=== PATIENT | male | born 1990 | race Caucasian/White ===

== ENCOUNTER 2018-09-23 04:17 | Emergency (ER) | payer BC ==
--- NOTE | 2018-09-23 04:19 | ER Report ---
History and Physical Time Seen By MD: 04:19 HPI/ROS CHIEF COMPLAINT: Gen. malaise, chills, cough HISTORY OF PRESENT ILLNESS: Patient is a 28-year-old male here with complaints of general malaise which started yesterday afternoon gradually worsening with associated cough, aches, chills, weakness. Patient reports that over the course of the night his symptoms precipitously worsened prompting evaluation. Patient has been tolerating oral intake with liquids. Denies obtaining influenza vaccination this year. REVIEW OF SYSTEMS: Constitutional: + fever, + chills. Eyes: No discharge. ENT: No sore throat. Cardiovascular: No chest pain, no palpitations. Respiratory: + cough, no shortness of breath. Gastrointestinal: No abdominal pain, no vomiting, + nausea Genitourinary: No hematuria. Musculoskeletal: No back pain.+ aches Skin: No rashes. Neurological: No headache. Allergies: Coded Allergies: No Known Drug Allergies (Unverified , 09/23/18) Home Meds Active Scripts Ondansetron 4 Mg Odt (ONDANSETRON 4 MG ODT) 4 Mg Tab.rapdis, 4 MG PO ONCE, #30 TAB Prov:MARIBEL MENDOSA DO 09/23/18 Oseltamivir Phosphate (TAMIFLU) 75 Mg Cap, 75 MG PO BID for 5 Days, #10 CAP 0 Refills Prov:MARIBEL MENDOSA DO 09/23/18 Reported Medications Fluticasone/Vilanterol 100/25 Mcg/Inh (BREO ELLIPTA 100/25 MCG) 1 Each Aer.pow.ba, 1 INH INH QDAY, INH 09/23/18 Fexofenadine Hcl (ABY ALLERGY) 180 Mg Tablet, 180 MG PO QDAY 09/23/18 Constitutional Vital Sign - Last 24 Hours 09/23/18 09/23/18 09/23/18 09/23/18 04:22 04:22 04:47 04:48 Temp 100.4 Pulse 122 114 Resp 18 B/P (MAP) 130/77 (94) 130/77 124/74 (91) Pulse Ox 88 90 O2 Delivery Room Air 09/23/18 09/23/18 09/23/18 09/23/18 04:53 05:06 05:08 05:23 Pulse 112 113 115 B/P (MAP) 131/41 (71) Pulse Ox 92 86 90 09/23/18 09/23/18 05:34 05:38 Pulse 115 B/P (MAP) 126/72 (90) Pulse Ox 87 Intake and Output 09/22/18 09/22/18 09/23/18 15:00 23:00 07:00 Intake Total 1000 ml Balance 1000 ml Physical Exam General Appearance: The patient is alert, has no immediate need for airway protection and no signs of toxicity. + Moderate distress Eyes: Pupils equal and round no pallor or injection. ENT, Mouth: Mucous membranes are moist. Respiratory: There are no retractions, lungs are clear to auscultation. Cardiovascular: + Sinus tachycardia Gastrointestinal: Abdomen is soft and non tender, no masses, bowel sounds normal. Neurological: No focal neurological deficits Skin: Warm and dry, no rashes. Musculoskeletal: Neck is supple non tender. Extremities are nontender, nonswollen and have full range of motion. DIFFERENTIAL DIAGNOSIS: After history and physical exam differential diagnosis was considered for adult fever including but not limited to viral syndromes including influenza, urinary tract infection, pneumonia and sepsis. Medical Decision Making Data Points Laboratory Hematology Test 09/23/18 00:00 Influenza Virus Type A (PCR) Positive (NEGATIVE) Influenza Virus Type B (PCR) Negative (NEGATIVE) Chemistry Test 09/23/18 00:00 Influenza Virus Type A (PCR) Positive (NEGATIVE) Influenza Virus Type B (PCR) Negative (NEGATIVE) EKG/Imaging Imaging Location: [facility] - [place] Patient: Bentley Goncalves : 1990 Visit/Account:[id number] [facility] CHEST: Indication: Cough and fever. Technique: Frontal and lateral views were obtained. Comparison: None. Skeletal and soft tissue structures: Intact and unremarkable. Heart and mediastinum: Within normal limits. Lung estrada: Well-expanded and clear. No focal opacities. Pleural spaces: Unremarkable. Impression: No acute process. ED Course/Re-evaluation ED Course Patient is a 28-year-old male here with progressive onset of general malaise, fever, fatigue, chills, weakness starting yesterday afternoon. Patient has been tolerating oral intake however was notably tachycardic at time of evaluation. Chest x-ray showed no acute consolidations. Patient was given IV fluid bolus, Zofran. Flu screening was positive for influenza A. Patient was given prescription for Tamiflu, Zofran and advised to take Tylenol, ibuprofen as needed for fever control. Return precautions provided, PCP follow-up recommended. Decision to Disposition Date: Sep 23, 2018 Decision to Disposition Time: 05:52 Depart Departure Latest Vital Signs Vital Signs Date Time Temp Pulse Resp B/P (MAP) Pulse Ox O2 Delivery O2 Flow Rate FiO2 09/23/18 05:38 115 87 09/23/18 05:34 126/72 (90) 09/23/18 04:22 100.4 18 Room Air Impression: Primary Impression: Influenza A Condition: Improved Disposition: HOME OR SELF-CARE New Scripts Ondansetron 4 Mg Odt (ONDANSETRON 4 MG ODT) 4 Mg Tab.rapdis 4 MG PO ONCE, #30 TAB Prov: MARIBEL MENDOSA DO 09/23/18 Oseltamivir Phosphate (TAMIFLU) 75 Mg Cap 75 MG PO BID for 5 Days, #10 CAP 0 Refills Prov: MARIBEL MENDOSA DO 09/23/18 Departure Forms: ER Transition Record, Medications Reconciliation, Off Work/School Form, School or Work Release?: Work Number of days to be released: 3 Patient Portal Information Patient Instructions: Influenza (DC) Additional Instructions: Please drink plenty of water. You may take Tylenol, ibuprofen as needed for fever control. Please take zofran1 tablet every 4-6 hours as needed for nausea control. Please take Tamiflu 1 tablet twice daily for 5 days for treatment of influenza. Please return immediately if you develop inability to keep down food or fluids, worsening fevers, increased shortness breath, worsening cough. Please follow-up with your family doctor in the next 24-48 hours for repeat evaluation. MARIBEL MENDOSA DO Sep 23, 2018 04:19
[2018-09-23] MEDS ORDERED: FEXO-67 PO (04:26)
[2018-09-23] MEDS ORDERED: FLUT1AER INH (04:26)
[2018-09-23] MEDS ORDERED: ONDANSETRON 4 MG/2 ML VIAL IVP ONE (04:40)
[2018-09-23] MEDS ORDERED: NS(*) 0.9% 1000 ML BAG 1,000 ML IV ONE (04:40)
[2018-09-23 05:34] VITALS: BP 126/72
--- NOTE | 2018-09-23 05:38 | RADIOLOGY IMAGING REPORT ---
FACILITY: [facility] PATIENT NAME: Bentley Goncalves : 1990 MR: [id number] V: [id number] EXAM DATE: ORDERING PHYSICIAN: MARIBEL MENDOSA TECHNOLOGIST: Location: [facility] - [place] Patient: Bentley Goncalves : 1990 Visit/Account:[id number] Date of Sevice: 09/23/2018 CHEST: Indication: Cough and fever. Technique: Frontal and lateral views were obtained. Comparison: None. Skeletal and soft tissue structures: Intact and unremarkable. Heart and mediastinum: Within normal limits. Lung estrada: Well-expanded and clear. No focal opacities. Pleural spaces: Unremarkable. Impression: No acute process. Report Dictated By: Paxton Dangelo MD at 09/23/2018 5:26 AM Report E-Signed By: Paxton Dangelo MD at 09/23/2018 5:34 AM WSN:[id number]
[2018-09-23] MEDS ORDERED: ONDA4TAB9 PO (05:55)
[2018-09-23] MEDS ORDERED: OSE75 PO (05:55)
== END 2018-09-23 06:05 | disposition home or self-care (01) ==
LOC: ER 04:38
DX: J10.1 Influenza due to other identified influenza virus with other respiratory manifestations (principal)
CPT/HCPCS: 71046; 87502; 96374; 99283; J2405; J7030